=== PATIENT | female | born 2000 | race Caucasian/White ===

== ENCOUNTER 2023-07-17 01:38 | Emergency (ER) | payer OTHER ==
[~2023-07-17] VITALS: Ht 170.2 cm; Wt 64.1 kg
[2023-07-17 02:34] VITALS: TEMP 98.4
[2023-07-17 06:45] VITALS: BP 120/68; PULSE 72; RESP 15
== END 2023-07-17 07:02 | disposition home or self-care (01) ==
LOC: EMS 01:39
DX: F43.23 Adjustment disorder with mixed anxiety and depressed mood (principal)
CPT/HCPCS: 99284; Z7502